=== PATIENT | female | born 1985 | race Caucasian/White ===

== ENCOUNTER → 2018-08-15 11:42 | Observation (INO) ==
[2018-08-15 11:16] LABS: Bilirubin,Urine Negative (Negative); Blood,Urine Negative (Negative); Clarity,Urine Clear (Clear); Color,Urine Yellow (Yellow); Glucose,Urine (UA) Normal (Normal); Ketones,Urine Negative (Negative); Leukocyte Esterase,Urine Trace (Negative); Nitrite,Urine Negative (Negative); PH,Urine 6.5 pH Units (5.0-8.0); Protein,Urine Negative (Neg-Trace); Specific Gravity,Urine 1.006 (1.010-1.025); Urobilinogen,Urine Normal (Normal)
[2018-08-15 11:17] LABS: Bacteria,Urine None Seen per hpf (None-Few); Hyaline Casts,Urine None Seen per lpf (None-Few); RBC,Urine 0-3 per hpf (0-3); Squamous Epithelial Cell,Urine Many per lpf (None-Few); WBC,Urine 0-3 per hpf (0-3)
[2018-08-15 11:30] LABS: Amphetamine Screen,Urine Negative ng/mL (Cutoff=1000); Barbiturate Screen,Urine Negative ng/mL (Cutoff=200); Benzodiazepines Screen,Urine Negative ng/mL (Cutoff=200); Cannabinoid Screen,Urine Negative ng/mL (Cutoff = 50); Cocaine Screen,Urine Negative ng/mL (Cutoff= 300); Opiate Screen,Urine Negative ng/mL (Cutoff=300); Phencyclidine Screen,Urine Negative ng/mL (Cutoff=25)
--- NOTE | 2018-08-15 11:37 | Discharge Summary ---
Date of Encounter: 08/15/18 Time of Encounter: 11:37 - Discharge Diagnosis (1) 31 to 32 weeks gestation of Priority: Primary Status: Acute Comments: admitted for observation (2) Decreased movement Priority: Secondary Status: Acute Comments: Patient reports decreased movement for the past 24 hours Qualifiers: Fetus number: single or unspecified fetus Trimester: third trimester Qualified Code(s): O36.8130 - Decreased movements, third trimester, not applicable or unspecified (3) NST (non-stress test) reactive on surveillance Priority: Secondary Status: Acute Comments: FHR baseline 145 bpm moderate variability +15x15 accels no decels noted. cAt. 1 tracing. - Discharge Medications Home Medications: Vit Calc,Iron,Folic [ Vitamins] 1 tab PO DAILY 08/15/18 [History] metFORMIN [Glucophage] 1 tab PO BID 08/15/18 [History] Allergies/Adverse Reactions: Allergy/AdvReac Type Severity Reaction Status Date / Time acetaminophen [From Percocet] Allergy Hives Verified 08/15/18 10:57 azithromycin Allergy Anaphylaxis Verified 08/15/18 10:57 Oxycodone [From Percocet] Allergy Hives Verified 08/15/18 10:57 Penicillins [PCN] Allergy Anaphylaxis Verified 08/15/18 10:57 tetracycline [Tetracycline] Allergy Anaphylaxis Verified 08/15/18 10:57 Data Procedures and tests throughout hospitalization: Laboratory Tests 08/15/18 08/15/18 11:04 11:04 Urine Color Yellow Urine Clarity Clear Urine pH 6.5 Ur Specific Benjamin 1.006 L Urine Protein Negative Urine Glucose (UA) Normal Urine Ketones Negative Urine Blood Negative Urine Nitrite Negative Urine Bilirubin Negative Urine Urobilinogen Normal Ur Leukocyte Esterase Trace H Urine Microscopic RBC 0-3 Urine Microscopic WBC 0-3 Ur Squamous Epith Cells Many H Urine Bacteria None Seen Hyaline Casts None Seen Ur Culture Indicated? NO. A Urine Opiates Screen Negative Ur Barbiturates Screen Negative Ur Phencyclidine Scrn Negative Ur Amphetamines Screen Negative U Benzodiazepines Scrn Negative Urine Cocaine Screen Negative U Marijuana (THC) Screen Negative Ur Drug Screen Interp See Below Labs on day of discharge: Labs from last 24 hours 08/15/18 08/15/18 11:04 11:04 Urine Color Yellow Urine Clarity Clear Urine pH 6.5 Ur Specific Benjamin 1.006 L Urine Protein Negative Urine Glucose (UA) Normal Urine Ketones Negative Urine Blood Negative Urine Nitrite Negative Urine Bilirubin Negative Urine Urobilinogen Normal Ur Leukocyte Esterase Trace H Urine Microscopic RBC 0-3 Urine Microscopic WBC 0-3 Ur Squamous Epith Cells Many H Urine Bacteria None Seen Hyaline Casts None Seen Ur Culture Indicated? NO. A Urine Opiates Screen Negative Ur Barbiturates Screen Negative Ur Phencyclidine Scrn Negative Ur Amphetamines Screen Negative U Benzodiazepines Scrn Negative Urine Cocaine Screen Negative U Marijuana (THC) Screen Negative Ur Drug Screen Interp See Below Date of admission: 08/15/18 10:41 Discharging clinician: Jessie Ching Anticipated date of discharge: 08/15/18 - Patient Status Disposition: Home, Self-Care Condition: Good Functional capacity at discharge: independent ambulation - Discharge Instructions Follow Up With: Ariadne Cerrato MD [Partnered Physician] - - Diet and Activity Activity: increase activity as tolerated Diet: regular diet 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 Patient denies contractions, LOF or VB. Patient does report feeling movement while on the monitor. Reactive NST. Time Attestation: Total time spent providing and/or coordinating discharge services: Time Spent: Less than 30 minutes Exam - Constitutional General appearance IM: A&O X 3, pleasant, answers questions appropriately - Extremities Exam Extremities exam IM: Present: full ROM, normal capillary refill, normal inspection - Neurological Exam Neurological exam: alert, oriented X3, reflexes normal - Other Additional findings: FHR 145 bpm moderate variability +15x15 accels no decels noted. Cat. 1 tracing - VTE Reasons for not Prescribing Prophylaxis: Treatment not Indicated - Low risk for VTE
== END | disposition home or self-care (01) ==
LOC: 1NENULAB
PROVIDERS: ADMIT Advanced Practice Midwife; ATTEND Advanced Practice Midwife

== ENCOUNTER 2018-10-01 09:51 | Inpatient (IN) ==
[2018-10-01] MEDS ORDERED: Famotidine 20 MG/2 ML VIAL IVP ONE ×2 (10:27→21:22)
[2018-10-01] MEDS ORDERED: Clindamycin 900 MG/50 ML 900 MG/50 ML IV.SOLN IVPB ONE ×2 (10:27→21:22)
[2018-10-01] MEDS ORDERED: Metoclopramide 10 MG/2 ML VIAL IVP ONE ×3 (10:27→21:28)
[2018-10-01] MEDS ORDERED: Ringers Solution, Lactated 1,000 ML IVC SCH ×2 (10:30→21:30)
[2018-10-01 10:48] LABS: Basophils % 0.5 %; Eosinophils # 0.3 K/mcL (0.0-0.6); Eosinophils % 3.5 %; Hematocrit 37.5 % (35.3-44.9); Immature Granulocytes % 0.4 % (0-4); Lymphocytes % 24.4 %; Mean Corpuscular HGB Conc 34.7 g/dL (31.6-35.5); Mean Corpuscular Hemoglobin 30.7 pg (28.0-33.3); Mean Corpuscular Volume 88.4 fL (83.0-100.0); Mean Platelet Volume 10.1 fL (9.4-12.4); Monocytes # 0.6 K/mcL (0.0-1.3); Monocytes % 7.4 %; Neutrophils # 5.3 K/mcL (1.6-8.9); Platelet Count 251 K/mcL (140-400); Red Blood Count 4.24 M/mcL (3.82-4.97); Red Cell Distribution Width 12.8 % (11.5-14.5); Segmented Neutrophils % 63.8 %
[2018-10-01] MEDS: Ringers Solution, Lactated 1,000 ML IVC ONE ×2 (10:57→21:32)
[2018-10-01 11:08] LABS: Amphetamine Screen,Urine Negative ng/mL (Cutoff=1000); Barbiturate Screen,Urine Negative ng/mL (Cutoff=200); Benzodiazepines Screen,Urine Negative ng/mL (Cutoff=200); Cannabinoid Screen,Urine Negative ng/mL (Cutoff = 50); Cocaine Screen,Urine Negative ng/mL (Cutoff= 300); Opiate Screen,Urine Negative ng/mL (Cutoff=300); Phencyclidine Screen,Urine Negative ng/mL (Cutoff=25)
--- NOTE | 2018-10-01 11:48 | Anesthesia Evaluation PreOp ---
Date of Encounter: 10/01/18 Time of Encounter: 11:46 - Past History Planned Operation: Primary Cardiac History: Denies any Significant Hx Pulmonary History: Denies Any Significant HX TUBING ASSEMBLER History: Denies Any Significant HX Other Medical History: Diabetes Type II (gestational DM) Anesthesia History: No Prior Anesthetic Complications (FOREIGN x 1--no complications; denies personal and family h/o GA complications) : Yes Alcohol Use: none Drug use: none Medications and Allergies Vit Calc,Iron,Folic [ Vitamins] 1 tab PO DAILY 08/15/18 [History] metFORMIN [Glucophage] 1 tab PO BID 08/15/18 [History] Allergy/AdvReac Type Severity Reaction Status Date / Time acetaminophen [From Percocet] Allergy Hives Verified 08/15/18 10:57 azithromycin Allergy Anaphylaxis Verified 08/15/18 10:57 Oxycodone [From Percocet] Allergy Hives Verified 08/15/18 10:57 Penicillins [PCN] Allergy Anaphylaxis Verified 08/15/18 10:57 tetracycline [Tetracycline] Allergy Anaphylaxis Verified 08/15/18 10:57 - Meds/Allergy Pre-op Review Medications Reviewed: Yes Allergies Reviewed: Yes Beta Blockers on Current Med List: No Anesthesia Results - Labs 10/01/18 10:25 Anesthesia Exam O2 Sat Height 1.52 m Height 1.52 m Weight 92.4 kg Weight 92.4 kg NPO (# of Hours): solids > 8hr Pain Scale: 0 Pain Scale Used: Numeric (1 - 10) - HEENT Pupil (Motor): Pupils equal Mallampati: II Teeth: Normal Oral Opening: Greater than 3 - TUBING ASSEMBLER LOC: Oriented TUBING ASSEMBLER Motor: Normal RUE, Normal LUE, Normal RLE, Normal LLE, Normal Face TUBING ASSEMBLER Sensory: Normal: RUE, LUE, RLE, LLE, Face - Cardiac Rhythm: Regular Murmur: None JVD: No Carotid Bruit: No - Pulmonary Breath Sounds: bilateral Clear Respiratory Effort: Symmetrical Anesthesia Assess/Plan ASA Score: 2 Level of consciousness: Cooperative, Oriented, Tranquil Anesthetic Plan: General (plan B), Spinal (plan A) Autologous Blood: No Monitoring Plan: Standard Monitors Recovery Plan: PACU
[2018-10-01] MEDS ORDERED: Bupivacaine/PF 0.75% in Dex 2 ML AMPUL INFILT ONE (11:49)
[2018-10-01] MEDS ORDERED: Lidocaine -MPF 1% 5 ML AMPUL ONE (11:51)
[2018-10-01] MEDS ORDERED: *HR* Morphine Sulfate/PF 10 MG/10 ML AMPUL ONE (11:51)
[2018-10-01] MEDS ORDERED: *HR* FentaNYL (PF) 100 MCG/2 ML VIAL ONE (11:51)
[2018-10-01] MEDS ORDERED: Ringers Solution, Lactated 2,000 ML ONE (11:55)
[2018-10-01] MEDS ORDERED: *HR* Oxytocin 10 UNIT/ML VIAL IM ONE (11:56)
--- NOTE | 2018-10-01 13:05 | OB/GYN History & Physical ---
Date of Encounter: 10/01/18 Time of Encounter: 13:00 Assessment and Plan (1) 39 weeks gestation of Current visit: Yes Status: Acute Prob list: 33 y/o @ 39+2 weeks, GDMA 2 on Metfomin, Rh+/GBS neg Plan: cytotec 25mcg Q4hrs per vagina x 2 doses, AROM with advanced dilation, ok for epidural if she desires, fingerstick glucose monitoring every 2 hrs in latent phase, 1hr in active phase if uncontrolled, anticipate History of Present Illness HPI: Ms. Razo is a 33 year old female @ 39+2 weeks who presented initially for c section for breech presentation. She does not report LOF VB or ctxs, feels good FM. She is GDMA2 on Metfomin. She had polyhydramnios but has since resolved. Her sugars are controlled. Upon U/S check, fetus was found to be vtx so we will be inducing her. Past Med Surg Social Fam HX - Past Medical History Medical history: no medical history Psychiatric history: no psych history - Past Surgical History Surgical History: no surgical history - Social History Smoking Status: Never smoker Smokeless Tobacco Status: No Alcohol use: none Drug use: none - Family History Mother Name: ade razo Age: 55 Living Status: Still Living Hx Family Cardiac Disorders: Yes (htn) Hx Family Respiratory Disorders: No Hx Family Cancer: No Hx Family GI Disorders: No Hx Family Genitourinary Disorders: No Hx Family Endocrine Disorder: Yes (dm) Hx Family Musculoskeletal Disorders: No Hx Family Neuromuscular Disorders: No Hx Family Neurologic Disorders: No Hx Family HEENT Disorders: No Hx Family Autoimmune Disorders: No Hx Family Reproductive Disorders: No Hx Family Psychosocial Disorders: No Hx Family Medical Disorders: No Obstetrical History - Pregnancies : 2 Para: 1 Medications and Allergies Vit Calc,Iron,Folic [ Vitamins] 1 tab PO DAILY 08/15/18 [History] metFORMIN [Glucophage] 1 tab PO BID 08/15/18 [History] Allergy/AdvReac Type Severity Reaction Status Date / Time acetaminophen [From Percocet] Allergy Hives Verified 08/15/18 10:57 azithromycin Allergy Anaphylaxis Verified 08/15/18 10:57 Oxycodone [From Percocet] Allergy Hives Verified 08/15/18 10:57 Penicillins [PCN] Allergy Anaphylaxis Verified 08/15/18 10:57 tetracycline [Tetracycline] Allergy Anaphylaxis Verified 08/15/18 10:57 Review of System OB All systems PM: reviewed and no additional remarkable complaints except as stated Exam - Constitutional Constitutional: no acute distress - Neck Neck exam: full ROM - Lungs Respiratory exam: CTAB - Cardiovascular Cardiovascular exam: RRR - Abdomen Abdomen: Present: gravid Results Result Diagrams: 10/01/18 10:25 All other labs normal. - VTE Reasons for not Prescribing Prophylaxis: Treatment not Indicated - Low risk for VTE
[2018-10-01] MEDS ORDERED: Epidural Premix (fent/bupiv) 110 ML EP ONE (14:55)
[2018-10-01] MEDS ORDERED: *HR* Nalbuphine 10 MG/ML AMPUL IVP PRN (15:05)
[2018-10-01] MEDS ORDERED: Naloxone 0.4 MG/ML INJ IVP PRN ×2 (15:05→22:24)
[2018-10-01] MEDS ORDERED: miSOPROStol 25 MCG TABLET VG PRN (15:05)
[2018-10-01] MEDS ORDERED: Ondansetron 4 MG/2 ML VIAL IVP PRN ×2 (15:05→22:24)
[2018-10-01] MEDS ORDERED: Famotidine 20 MG/2 ML VIAL IVP PRN (15:05)
[2018-10-01] MEDS ORDERED: Ringers Solution, Lactated 1,000 ML IVC ONE (21:22)
--- NOTE | 2018-10-01 21:35 | Event Note ---
Date of Encounter: 10/01/18 Time of Encounter: 21:33 I went to discuss delivery with Noris. She stated that at her last delivery 10 years ago baby weighed approximately 6 lbs. 3 oz. She states that she pushed for over 6 hours with that baby. She was very concerned about the size of this child. I asked her what her last ultrasound was and she stated approximately 3- 4 weeks ago and at that time baby was approximately 8 pounds. Because this a follow-up ultrasound was ordered today. Ultrasound results just came back showing baby to be approximately 8 lbs. 12 oz. I had a kelly discussion with this patient today. She was very concerned and did not wish to try vaginal delivery on the pound 12 ounce infant. I felt that this was a smartest move for her as she had difficulty with a 6 pound baby. I felt that the increased 3 pounds we very difficult to do it she will most likely and shoulder dystocia. She agrees. Consent was obtained for primary section. We will proceed this way. Anesthesia has been notified.
[2018-10-01] MEDS ORDERED: EPHEDrine 50 MG/ML VIAL ONE (22:08)
--- NOTE | 2018-10-01 22:22 | Anesthesia Procedures ---
Date of Encounter: 10/01/18 Time of Encounter: 22:01 Procedures: Anesthesia - Epidural/Spinal Patient ID/Chart reviewed: Yes Patient examined: Yes OB Eval: Gestational age: 39 weeks 2 days OB Eval: : 2 OB Eval: Hx Para: 1 OB Eval: Contractions: Non-stressed pattern Consent Obtained: Yes Supplemental Oxygen: None/Room Air Site Prep: Aseptic Technique, Sterile prep and drape, Povidone-Iodine 1% Patient position: upright Local Anesthetic: Lidocaine 1% Amount of Local Anesthetic used: 3 Interspace Used: L3-L4 Loss of Resistance (MELISSA): No Blood: No CSF: Yes Paresthesia: No Spinal Needle Gauge: 25 (3.5" pencan needle) Spinal Dose: see anesthesia record Procedure: successful on 1st attempt; Patient tolerated procedure well; VSS Vitals + FHT's: see anesthesia record
[2018-10-01] MEDS ORDERED: *HR* Promethazine 25 MG/ML VIAL IVP PRN (22:24)
[2018-10-01] MEDS ORDERED: Acetaminophen IV 1,000 MG/100 ML INFUS..BTL IVPB ONE (22:24)
--- NOTE | 2018-10-01 22:58 | OB/GYN Procedure Note ---
Section - Date of procedure: 10/01/18 Preop diagnosis: other Post-op diagnosis: same Procedure: primary low transverse Surgeon: Luis Flores Blood Loss: 400 Was there an assistant customer service manager present: Yes Appeals Assistant: Royer Malcolm Anesthesiologist: Elias Jara Marble Helper: Roni Young Anesthesia Type: Spinal section complications: none Disposition: Post floor - Narrative Narrative: After informed consent was obtained patient was taken back to the operating room with an IV in place. She was then given spinal anesthesia. She was then prepped and draped in the usual sterile fashion. Once adequate analgesia was achieved, a Pfannenstiel incision was made. It was carried sharply through the subcutaneous taste and fatty tissue, until the fascial layer was reached. The fascia was then nicked in the midline and incised bilaterally with Early scissors. It was then dissected vertically for adequate exposure. Rectus abdominis muscles creatures and separate the midline and the peritoneum sharply entered. A bladder blade was placed at the inferior margin incision. Bladder flap was then developed. A bladder blade placed over the bladder flap, and a transverse incision was then made in the lower uterine segment. Polyhydramnios was noted. Large amount of fluid was removed. The infant's head was then delivered with vacuum assistance. There was 1 pop off and then one pole of the 's head for approximately 4 seconds. The rest the infant was then delivered without difficulty. Infant cried immediately upon delivery. Cord was cut to cut the infant was then passed to nursing in attendance. Cord blood was obtained. Placenta was delivered via uterine lavage and massage. The uterus was then delivered. Again uterine lavage was performed. The incision was then closed with 0 Vicryl suture running locking fashion. One [id number] was placed for final hemostasis. The uterus was replaced the pelvic cavity. The pelvic cavity was rinsed thoroughly with sterile water 2. All bleeders cauterized. The subfascial region was examined. There was no bleeding noted. The fascia was then closed the Vicryl suture in a running nonlocking fashion. Suprafascial region was rinsed through sterile water 2 all bleeders cauterized. Skin was closed ann-marie.
--- NOTE | 2018-10-01 23:01 | Event Note ---
Date of Encounter: 10/01/18 Time of Encounter: 23:01 Patient delivered a female at 2222 with a weight of 3730 g, 8 lbs. 4 oz. Apgars were 9 at 1 minute and 9 at 5 minutes. Estimated blood loss is 400 mL. Patient's blood type is O+
--- NOTE | 2018-10-01 23:07 | Anesthesia Evaluation Post Op ---
Date of Encounter: 10/01/18 Time of Encounter: 23:06 - Vital Signs Vital Signs: 137/86, hr 108, 98%, RR16 - Lungs Lungs: Clear Ascult./Percussion - Airway Airway: Non-obstructed - Cardiovascular Regular Rate - Mental Status Mental Status: Alert & Oriented, Answers Appropriately - Pain Pain Scale: 0 Pain Scale used: Numeric (1 - 10) - Nausea Vomiting Nausea Vomiting: Not Present - Hydration Hydration: NPO, Herman catheter - Discharge PostOp Status: Transfer Patient to floor
[2018-10-01] MEDS ORDERED: Oxytocin 20 units/ LR 1000 mL 20 UNIT/1,000 ML BAG IVC ONE (23:56)
[2018-10-02] MEDS ORDERED: Oxytocin 20 units/ LR 1000 mL 20 UNIT/1,000 ML BAG IVC ONE (00:15)
[2018-10-02] MEDS ORDERED: Oxytocin 20 units/ LR 1000 mL 20 UNIT/1,000 ML BAG IVC SCH (03:07)
[2018-10-02] MEDS ORDERED: Sennosides 8.6 MG TABLET PO PRN (03:07)
[2018-10-02] MEDS ORDERED: *HR* Acetaminophen w/Cod 300-30 mg 1 TAB TABLET PO PRN (03:07)
[2018-10-02] MEDS ORDERED: *HR* HYDROmorphone (PF) 1 MG/ML SYRINGE IVP PRN (03:07)
[2018-10-02] MEDS ORDERED: Ondansetron 4 MG/2 ML VIAL IVP PRN (03:07)
[2018-10-02] MEDS ORDERED: Clindamycin 900 MG/50 ML 900 MG/50 ML IV.SOLN IVPB SCH ×3 (03:07→06:00)
[2018-10-02] MEDS ORDERED: Metoclopramide 10 MG/2 ML VIAL IVP PRN (03:07)
[2018-10-02] MEDS ORDERED: Naloxone 0.4 MG/ML INJ IVP PRN (03:07)
[2018-10-02 04:27] LABS: Basophils % 0.3 %; Eosinophils % 0.2 %; Immature Granulocytes % 0.5 % (0-4); Lymphocytes # 1.4 K/mcL (0.6-4.6); Lymphocytes % 10.6 %; Mean Corpuscular Hemoglobin 30.6 pg (28.0-33.3); Mean Corpuscular Volume 90.1 fL (83.0-100.0); Mean Platelet Volume 10.1 fL (9.4-12.4); Monocytes # 0.8 K/mcL (0.0-1.3); Monocytes % 6.3 %; Platelet Count 211 K/mcL (140-400); Red Blood Count 3.33 M/mcL (3.82-4.97); Red Cell Distribution Width 13.1 % (11.5-14.5); Segmented Neutrophils % 82.1 %
[2018-10-02 04:30] LABS: Neutrophils # 10.8 K/mcL (1.6-8.9)
[2018-10-02 04:31] LABS: Hemoglobin 10.2 g/dL (11.5-15.4)
[2018-10-02] MEDS: Prenatal Vit/FA 1 EACH TABLET PO SCH (08:41)
[2018-10-02] MEDS: Ibuprofen 600 MG TABLET PO PRN ×3 (08:41→22:29)
--- NOTE | 2018-10-02 12:03 | OB/GYN Progress Note ---
Date of Encounter: 10/02/18 Time of Encounter: 12:00 - Assessment and Plan (1) delivery delivered Current Visit: Yes Status: Acute Pt meeting POD1 milestones. Await spontaneous void and flatus. Anticipate discharge home POD2. (2) Breast feeding status of mother Current Visit: Yes Status: Acute (3) Gestational diabetes Current Visit: Yes Status: Acute Plan for 2 hour GTT in 6 weeks Qualifiers: Gestational diabetes mellitus control: diet-controlled Trimester: unspecified trimester Qualified Code(s): O24.410 - Gestational diabetes mellitus in , diet controlled Subjective - Subjective Interval history: Pt reports feeling well this am. She denies complaints at this time. Await spontaneous void s/p [place] removal. No flatus since surgery. Patient reports: appetite normal, pain well controlled, ambulating normally [place]: doing well Objective - Vital Signs Latest vital signs: Vital Signs Temp Pulse Resp BP Pulse Ox 10/02/18 08:00 98.5 F 107 16 126/85 98 10/02/18 04:28 97.8 F 98 16 115/81 97 10/02/18 03:18 98.7 F 100 16 126/74 96 10/02/18 02:15 98.0 F 110 18 136/70 98 10/02/18 01:48 97.4 F L 111 16 127/71 97 10/02/18 01:15 97.4 F L 95 16 132/77 96 Intake and Output 10/01/18 10/02/18 10/02/18 23:59 07:59 15:59 Intake Total 180 / 180 Output Total 450 / 450 950 / 950 Balance -270 / -270 -950 / -950 Intake: Oral 180 / 180 Output: Catheter 450 / 450 950 / 950 - Exam Lungs: bilateral: normal Chest: Normal S1, Normal S2 Extremities: Present: edema (1+ bilaterally) Abdomen: Present: soft Incision: Present: intact Uterus: Present: firm Fundal Height: 1 - Labs Labs: Laboratory Results - last 24 hr 10/01/18 10/01/18 10/01/18 13:10 15:51 17:59 WBC RBC Hgb Hct MCV MCH MCHC RDW Plt Count MPV Immature Gran % Seg Neutrophils % Lymphocytes % Monocytes % Eosinophils % Basophils % Neutrophils # Lymphocytes # Monocytes # Eosinophils # Basophils # POC Glucose 82 105 H 110 H 10/01/18 10/02/1818 21:34 00:18 04:08 WBC 13.2 H D RBC 3.33 L Hgb 10.2 L D Hct 30.0 L MCV 90.1 MCH 30.6 MCHC 34.0 RDW 13.1 Plt Count 211 MPV 10.1 Immature Gran % 0.5 Seg Neutrophils % 82.1 Lymphocytes % 10.6 Monocytes % 6.3 Eosinophils % 0.2 Basophils % 0.3 Neutrophils # 10.8 H Lymphocytes # 1.4 Monocytes # 0.8 Eosinophils # 0.0 Basophils # 0.0 POC Glucose 76 104 H
[2018-10-02] MEDS: Simethicone 80 MG TAB.CHEW PO PRN (16:26)
[2018-10-03 08:44] VITALS: BP 114/70
--- NOTE | 2018-10-03 08:46 | Discharge Summary ---
Date of Encounter: 10/03/18 Time of Encounter: 08:39 - Discharge Diagnosis (1) delivery delivered Priority: Primary Status: Acute Comments: Pt meeting post-op milestones. Discharge home today. (2) Breast feeding status of mother Priority: Secondary Status: Acute (3) Gestational diabetes Priority: Secondary Status: Acute Comments: 2 hour GTT in 6 weeks Qualifiers: Gestational diabetes mellitus control: diet-controlled Trimester: unspecified trimester Qualified Code(s): O24.410 - Gestational diabetes mellitus in , diet controlled - Discharge Medications Prescriptions: Acetaminophen w/Cod 300-30 mg [Tylenol w/Codeine #3] 1 tab PO Q6HR PRN 5 Days #20 tablet PRN Reason: Pain Ibuprofen [Motrin] 600 mg PO Q6HR PRN #30 tablet PRN Reason: Cramping Ondansetron ODT [Zofran ODT] 4 mg SL Q6HR #20 tab.rapdis Docusate [Colace] 100 mg PO BID #60 capsule Home Medications: Vit Calc,Iron,Folic [ Vitamins] 1 tab PO DAILY 08/15/18 [History] Acetaminophen w/Cod 300-30 mg [Tylenol w/Codeine #3] 1 tab PO Q6HR PRN 5 Days #20 tablet 10/03/18 [Rx] Docusate [Colace] 100 mg PO BID #60 capsule 10/03/18 [Rx] Ibuprofen [Motrin] 600 mg PO Q6HR PRN #30 tablet 10/03/18 [Rx] Ondansetron ODT [Zofran ODT] 4 mg SL Q6HR #20 tab.rapdis 10/03/18 [Rx] Simethicone [Gas-X] 80 mg PO TID PRN tab.chew 10/03/18 [Rx] Allergies/Adverse Reactions: Allergy/AdvReac Type Severity Reaction Status Date / Time acetaminophen [From Percocet] Allergy Hives Verified 08/15/18 10:57 azithromycin Allergy Anaphylaxis Verified 08/15/18 10:57 Oxycodone [From Percocet] Allergy Hives Verified 08/15/18 10:57 Penicillins [PCN] Allergy Anaphylaxis Verified 08/15/18 10:57 tetracycline [Tetracycline] Allergy Anaphylaxis Verified 08/15/18 10:57 Data Procedures and tests throughout hospitalization: Laboratory Tests 12/10/01/18 10/01/18 10:25 10:25 13:10 WBC 8.3 RBC 4.24 Hgb 13.0 Hct 37.5 MCV 88.4 MCH 30.7 MCHC 34.7 RDW 12.8 Plt Count 251 MPV 10.1 Immature Gran % 0.4 Seg Neutrophils % 63.8 Lymphocytes % 24.4 Monocytes % 7.4 Eosinophils % 3.5 Basophils % 0.5 Neutrophils # 5.3 Lymphocytes # 2.0 Monocytes # 0.6 Eosinophils # 0.3 Basophils # 0.0 POC Glucose 82 Urine Opiates Screen Negative Ur Barbiturates Screen Negative Ur Phencyclidine Scrn Negative Ur Amphetamines Screen Negative U Benzodiazepines Scrn Negative Urine Cocaine Screen Negative U Marijuana (THC) Screen Negative Ur Drug Screen Interp See Below 10/01/18 10/01/18 10/01/18 15:51 17:59 21:34 WBC RBC Hgb Hct MCV MCH MCHC RDW Plt Count MPV Immature Gran % Seg Neutrophils % Lymphocytes % Monocytes % Eosinophils % Basophils % Neutrophils # Lymphocytes # Monocytes # Eosinophils # Basophils # POC Glucose 105 H 110 H 76 Urine Opiates Screen Ur Barbiturates Screen Ur Phencyclidine Scrn Ur Amphetamines Screen U Benzodiazepines Scrn Urine Cocaine Screen U Marijuana (THC) Screen Ur Drug Screen Interp 10/02/18 10/02/18 00:18 04:08 WBC 13.2 H D RBC 3.33 L Hgb 10.2 L D Hct 30.0 L MCV 90.1 MCH 30.6 MCHC 34.0 RDW 13.1 Plt Count 211 MPV 10.1 Immature Gran % 0.5 Seg Neutrophils % 82.1 Lymphocytes % 10.6 Monocytes % 6.3 Eosinophils % 0.2 Basophils % 0.3 Neutrophils # 10.8 H Lymphocytes # 1.4 Monocytes # 0.8 Eosinophils # 0.0 Basophils # 0.0 POC Glucose 104 H Urine Opiates Screen Ur Barbiturates Screen Ur Phencyclidine Scrn Ur Amphetamines Screen U Benzodiazepines Scrn Urine Cocaine Screen U Marijuana (THC) Screen Ur Drug Screen Interp - Impressions ITS Impressions Obstetrics Ultrasound 10/01/18 20:00 IMPRESSION: Single live intrauterine with gestational age of 38 weeks 6 days by current sonographic biometry. The estimated due date is 09 October 2018. D/ / Leyda Pacheco MD / Leyda Pacheco MD Interpreting Provider: Leyda Pacheco MD Date of admission: 10/01/18 09:51 Primary care physician: PCP NONE Discharging clinician: Chika Alanis Anticipated date of discharge: 10/03/18 - Patient Status Disposition: Home, Self-Care Condition: Good Functional capacity at discharge: independent ambulation Overall status at discharge: patient is progressing back to baseline - Discharge Instructions Follow Up With: NONE,PCP [Primary Care Provider] - - Diet and Activity Activity: increase activity as tolerated Diet: regular diet Hospital Course Reason for admission: section Delivery: section Episiotomy: none Laceration: none Other procedures: none complications: none Discharge diagnosis: IUP at term delivered Ruby baby: female Hospital course: - Date of procedure: 10/01/18 Preop diagnosis: other Post-op diagnosis: same Procedure: primary low transverse Surgeon: Luis lFores Blood Loss: 400 Was there an registrar assistant present: Yes Poultry Farmer: Royer Malcolm Anesthesiologist: Elias Jara Wood Treating Inspector: Roni Young Anesthesia Type: Spinal section complications: none Disposition: home POD2 Time Attestation: Total time spent providing and/or coordinating discharge services: Time Spent: Less than 30 minutes - VTE Reasons for not Prescribing Prophylaxis: Treatment not Indicated - Low risk for VTE Documentation of Mechanical Device: Intermittent pneumatic compression device Exam - Constitutional Vitals: Temp Pulse Resp BP Pulse Ox 98.0 F 103 16 120/71 97 10/02/18 20:45 10/02/18 20:45 10/02/18 20:45 10/02/18 20:45 10/02/18 20:45 General appearance IM: A&O X 3 - Respiratory Respiratory exam: Present: CTAB - Cardiovascular Cardiovascular exam IM: Present: RRR - GI/Abdominal GI/Abdominal exam IM: soft Incision: intact (ann-marie intact, no s/sx infection) - Uterine Tone: Firm Uterus Position: 1 Finger Below Umbilicus - Extremities Exam Extremities exam IM: Present: normal inspection - Neurological Exam Neurological exam: normal gait, oriented X3 - Psychiatric Additional comments: reports good mood
[2018-10-03] MEDS: Simethicone 80 MG TAB.CHEW PO PRN (08:55)
[2018-10-03] MEDS: Prenatal Vit/FA 1 EACH TABLET PO SCH (08:55)
[2018-10-03] MEDS: Ibuprofen 600 MG TABLET PO PRN (09:10)
== END 2018-10-03 10:40 | disposition home or self-care (01) | DRG 540 ==
LOC: 1NENULAB 09:51 → 1NENUOBS 10-02 01:30
PROVIDERS: ADMIT Student in an Organized Health Care Education/Training Program; ATTEND Student in an Organized Health Care Education/Training Program